=== PATIENT | female | born 1995 | race Caucasian/White ===

== ENCOUNTER → 2017-11-18 | Outpatient (CLI) | payer BC ==
--- NOTE | 2017-11-18 17:02 | XR ---
EXAMINATION TYPE: XR ankle complete LT DATE OF EXAM: 11/18/2017 COMPARISON: NONE HISTORY: Pain and swelling TECHNIQUE: 3 views FINDINGS: There is soft tissue swelling over the lateral malleolus. I see no fracture nor dislocation . Joint spaces are normal. IMPRESSION: Lateral soft tissue swelling. No fracture.
== END | disposition home or self-care (01) ==
LOC: RADXRYALE 16:37
PROVIDERS: ATTEND Internal Medicine
DX: M79.89 Other specified soft tissue disorders (principal)

== ENCOUNTER → 2018-06-04 | Outpatient (CLI) | payer BC ==
--- NOTE | 2018-06-04 07:42 | US ---
EXAMINATION TYPE: US abdomen complete DATE OF EXAM: 06/04/2018 COMPARISON: NONE CLINICAL HISTORY: R10.11 R upper quad pain. EXAM MEASUREMENTS: Liver Length: 14.1 cm Gallbladder Wall: 0.2 cm CBD: 0.2 cm Spleen: 10.3 cm Right Kidney: 10.1 x 3.9 x 5.0 cm Left Kidney: 10.3 x 4.7 x 4.6 cm Pancreas: wnl Liver: wnl Gallbladder: wnl Evidence for sonographic Levin's sign: no CBD: wnl Spleen: wnl Right Kidney: No hydronephrosis or masses seen Left Kidney: No hydronephrosis or masses seen Upper IVC: wnl Abd Aorta: wnl The liver is homogenous. The intrahepatic portion of the IVC and proximal abdominal aorta are within normal limits. There is no evidence of cholelithiasis. Common bile duct is unremarkable. The visu alized portions of the pancreas are homogenous. The spleen is unremarkable. Kidneys are symmetric a nd free of hydronephrosis. No renal lesions are seen. IMPRESSION: No sonographic evidence of cholelithiasis nor acute cholecystitis.
== END | disposition home or self-care (01) ==
LOC: RADUSWWP 07:03
PROVIDERS: ATTEND Internal Medicine
DX: R10.11 Right upper quadrant pain (principal)
CPT/HCPCS: 76700

== ENCOUNTER → 2022-12-12 | Outpatient (CLI) | payer OTHER ==
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
== END | disposition home or self-care (01) ==
LOC: RADMRIMAIN 18:57
PROVIDERS: ATTEND Orthopaedic Surgery
DX: M54.2 Cervicalgia (principal); R51.9 Headache, unspecified
CPT/HCPCS: 72141

== ENCOUNTER → 2022-12-29 | Outpatient (CLI) | payer OTHER ==
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
== END | disposition home or self-care (01) ==
LOC: RADUSWWP 08:23
PROVIDERS: ATTEND Internal Medicine
DX: S70.11XA Contusion of right thigh, initial encounter (principal); R22.41 Localized swelling, mass and lump, right lower limb; V49.9XXA Car occupant (driver) (passenger) injured in unspecified traffic accident, initial encounter

== ENCOUNTER → 2023-01-29 | Outpatient (CLI) | payer BC ==
--- NOTE | 2023-01-29 11:04 | XR ---
EXAMINATION TYPE: XR thoracic spine 2V DATE OF EXAM: 01/29/2023 9:41 AM CLINICAL INDICATION:Female, 27 years old with history of M54.14; COMPARISON: None TECHNIQUE: XR thoracic spine 2V views of the thoracic spine in Frontal and lateral projections. FINDINGS: No evidence of acute fracture. There is no evidence of disk space narrowing or loss of vertebral bod y height. There is normal alignment of the thoracic vertebral bodies. IMPRESSION: No acute osseous pathology.
== END | disposition home or self-care (01) ==
LOC: RADXRMAIN 09:24
PROVIDERS: ATTEND Physician Assistant Medical
DX: M54.14 Radiculopathy, thoracic region (principal)
CPT/HCPCS: 72070

== ENCOUNTER → 2023-01-29 | Outpatient (CLI) | payer OTHER ==
[2023-01-29 09:37] VITALS: BP 138/78; PULSE 73; RESP 15; TEMP 97.3
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
== END ==
LOC: PNWHC3 08:53
PROVIDERS: ATTEND Specialist
DX: M47.24 Other spondylosis with radiculopathy, thoracic region (principal)
CPT/HCPCS: 99211

== ENCOUNTER → 2023-02-11 | Outpatient (CLI) | payer OTHER ==
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
== END | disposition home or self-care (01) ==
LOC: RADMRIMAIN 06:16
PROVIDERS: ATTEND Specialist
DX: M54.14 Radiculopathy, thoracic region (principal)
CPT/HCPCS: 72146

== ENCOUNTER → 2023-02-25 | Outpatient (CLI) | payer BC ==
[2023-02-25 13:26] VITALS: BP 135/87; PULSE 94; RESP 16
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
== END ==
LOC: PNWHC3 12:52
PROVIDERS: ATTEND Specialist
DX: M54.12 Radiculopathy, cervical region (principal); M54.14 Radiculopathy, thoracic region
CPT/HCPCS: 99211

== ENCOUNTER 2023-03-12 11:16 | Day surgery (SDC) | payer OTHER, BC ==
[2023-03-06 15:46] VITALS: BMI 25.0
[2023-03-12 11:45] VITALS: TEMP 98.8
[2023-03-12] MEDS ORDERED: IOPAMIDOL M200 10 ML VIAL ONE (12:20)
[2023-03-12] MEDS ORDERED: methylPREDNISolone ACETATE 80 MG/ML 1 ML VIAL ONE (12:20)
--- NOTE | 2023-03-12 12:34 | P.PCN ---
Date of Procedure: 03/12/23 Procedure(s) Performed: PREOPERATIVE DIAGNOSIS: 1-thoracic radiculopathy POSTOPERATIVE DIAGNOSIS: 1-thoracic radiculopathy PROCEDURE 1. Thoracic epidural steroid injection under fluoroscopic guidance at theT3-4 level. (Fluoroscopy imaging was available in radiology department) 2. Thoracic epidurogram. ANESTHESIA: Lidocaine 1% 3 and then only. EBL: Minimal PROCEDURE INDICATION: The patient with upper back pain and radiculitis symptoms unresponsive to conservative treatment. Fluoroscopy was used to optimize visualization of the needle placement and to maximize safety. PROCEDURE DESCRIPTION / TECHNIQUE: The patient was seen and identified in the preoperative area. Risks, benefits, complications including but not limited to infections ,bleeding ,allergic reaction to the medications ,nerve damage and not complete pain releife , and alternatives were discussed with the patient. The patient agreed to proceed with the procedure and signed the consent, and vital signs were stable. Patient was taken to the OR and time out was completed. The patient was placed in the prone position on procedure table . The lumbosacral area was prepped and draped in the usual sterile fashion.ere closely monitored during the procedure. Vital signs was monitered during the entire procedure. Using anterior-posterior fluoroscopy, the T3-4 interlaminar space was identified and the skin over this site was marked and then infiltrated with 1% lidocaine subcutaneously. Subsequently, a 20-gauge Tuohy epidural needle was inserted and advanced toward the epidural space using the ``Loss of resistance technique and guided by AP and lateral fluoroscopy. The correct needle position in the epidural space was verified with the injection of 2 mL of the water soluble contrast dye Isovue 200 contrast and observing an excellent epidurogram with the epidural spread of the dye, after negative aspiration for blood and CSF and in the absence of paresthesias. Again after negative aspiration, a 6 ml mixture containing 80 mg of Depo-medrol ( Preservetive Free ), and 2 ml of preservative free Normal Saline, and 2 ml of preservative free lidocaine 1% solution was injected and a washout of epidurogram was seen. Needle was withdrawn intact, skin was cleansed, and bandages were applied. COMPLICATIONS: None DISPOSITION / PLANS: The patient was placed in a supine position and transferred to the recovery area in a stable condition for observation. There was no evidence of lower extremity motor or sensory deficit after the procedure. Patient was discharged from the recovery room after meeting discharge criteria. Home discharge instructions were given to the patient by the staff. The patient was reexamined prior to discharge. The patient will schedule a follow up in the clinic in 2-4 weeks.
[2023-03-12] MEDS ORDERED: diphenhydrAMINE 25 MG CAP PO STA (12:40)
--- NOTE | 2023-03-12 12:45 | FL ---
EXAMINATION TYPE: FL guided pain mgmt statistic Intraoperative/procedural fluoroscopic services were provided. Total fluoroscopy time is 5.1 seconds with a total of 1 submitted images to PACS. Please se e the operative/procedural note for further details. DAP: [id number] mGym2
[2023-03-12] MEDS ORDERED: diphenhydrAMINE 25 MG CAP PO ONE (12:51)
[2023-03-12] MEDS ORDERED: LACTATED RINGERS 1,000 ML IV SCH (12:52)
[2023-03-12 13:26] VITALS: BP 133/85; PULSE 99; RESP 16
== END 2023-03-12 13:20 | disposition home or self-care (01) ==
LOC: ORPAIN 11:16
PROVIDERS: ATTEND Specialist
DX: M54.14 Radiculopathy, thoracic region (principal); Z88.6 Allergy status to analgesic agent
CPT/HCPCS: 81025; 62321; J1040; Q9966

== ENCOUNTER → 2023-04-06 | Outpatient (CLI) | payer OTHER, BC ==
[2023-04-06 09:10] VITALS: BP 135/85; PULSE 104; RESP 16; TEMP 97.6
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
== END ==
LOC: PNWHC3 08:41
PROVIDERS: ATTEND Specialist
DX: M54.14 Radiculopathy, thoracic region (principal); M54.12 Radiculopathy, cervical region; Z88.6 Allergy status to analgesic agent; Z88.8 Allergy status to other drugs, medicaments and biological substances
CPT/HCPCS: 99211

== ENCOUNTER 2023-04-16 08:46 | Day surgery (SDC) | payer OTHER, BC ==
[2023-04-16 09:59] VITALS: TEMP 99.4
[2023-04-16] MEDS ORDERED: ROPIVACAINE 5MG/ML 20ML VIAL ONE (10:57)
[2023-04-16] MEDS ORDERED: methylPREDNISolone ACETATE 80 MG/ML 1 ML VIAL ONE (10:57)
--- NOTE | 2023-04-16 11:21 | P.PCN ---
Description of Procedure: PREOPERATIVE DIAGNOSIS: 1-Thoracic degenerative Disc Diseases 2-thoracic spondylosis with Facet arthropathy without myelopathy. 3-thoracic spinal stenosis POSTOPERATIVE DIAGNOSIS: 1-thoracic degenerative disc disease. 2-thoracic spondylosis with facet arthropathy without myelopathy. 3-thoracic spinal stenosis. PROCEDURE Injection of radio contrast material into T 6 7 interspace, interpretation of epidurogram, injection of steroid at T6-7 epidural space under fluoroscopic guidance. ANESTHESIA: Lidocaine 1% subcutaneously. In OR continuous pulse ox, EKG, blood pressure and verbal communication was maintained with the patient. EBL: Minimal PROCEDURE INDICATION: Before the procedure were discussed with the patient detailed procedure, alternatives, complications including infection, bleeding, nerve damage, paralysis all of which could be permanent. Patient understands and all questions were answered. PROCEDURE DESCRIPTION : After getting consent, patient in OR in prone position. Back was prepped with chlorhexidine and draped in sterile fashion. After injecting 10 mL of 1% lidocaine subcutaneously, a 20-gauge Tuohy needle was introduced at T6-7 interspace with loss of resistance technique using a syringe filled with air. Negative CSF, negative blood, negative paresthesia. Needle position was c onfirmed with AP and lateral view of the fluoroscope. No contrast used secondary to patient's significant allergy. After repeat negative aspiration 5 mL solution was injected intermittently which consists of 4 mL of preservative- free normal saline mixed with 1 mL of 80 mg Depo-Medrol. Needle was withdrawn intact. Skin was cleansed and Band-Aids was applied. DISPOSITION / PLANS: The patient tolerated the procedure well. No complication. The patient was placed in a supine position and transferred to the recovery area in a stable condition for observation. There was no evidence of lower extremity motor or sensory deficit after the procedure. Patient was discharged from the recovery room after meeting discharge criteria. Home discharge instructions were given to the patient by the staff. The patient was reexamined prior to discharge. The patient will schedule a follow up in the clinic in 2-4 weeks.
--- NOTE | 2023-04-16 11:22 | FL ---
Fluoroscopy INDICATION: Pain FINDINGS: Fluoroscopy time: 20 seconds. Total dose area product (DAP) in uGy*m?, mGy*cm? (or similar): 0.73120 Images obtained: 3. IMPRESSION: 1. Documentation of fluoroscopy.
[2023-04-16 11:39] VITALS: BP 124/84; PULSE 82; RESP 20
== END 2023-04-16 11:43 | disposition home or self-care (01) ==
LOC: ORPAIN 08:46
PROVIDERS: ATTEND Pain Medicine Interventional Pain Medicine
DX: M47.814 Spondylosis without myelopathy or radiculopathy, thoracic region (principal); M48.04 Spinal stenosis, thoracic region; M51.34 Other intervertebral disc degeneration, thoracic region; Z88.8 Allergy status to other drugs, medicaments and biological substances
CPT/HCPCS: 81025; 62320; J1040; J2795; 62321

== ENCOUNTER → 2023-05-04 | Outpatient (CLI) | payer OTHER, BC ==
[2023-05-04 10:35] VITALS: BP 132/88; PULSE 86; RESP 16; TEMP 98.5
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
== END ==
LOC: PNWHC3 08:56
PROVIDERS: ATTEND Specialist
DX: M54.14 Radiculopathy, thoracic region (principal); M54.12 Radiculopathy, cervical region; Z88.6 Allergy status to analgesic agent; Z88.8 Allergy status to other drugs, medicaments and biological substances
CPT/HCPCS: 99211

== ENCOUNTER 2023-05-28 09:31 | Day surgery (SDC) | payer OTHER, BC ==
[2023-05-26 11:49] VITALS: BMI 26.6
[~2023-05-28 09:31] MED LIST: LACTATED RINGERS 1,000 ML IV SCH
[2023-05-28 10:09] VITALS: TEMP 97.6
[2023-05-28] MEDS ORDERED: methylPREDNISolone ACETATE 80 MG/ML 1 ML VIAL ONE ×2 (10:32)
--- NOTE | 2023-05-28 10:41 | P.PCN ---
Date of Procedure: 05/28/23 Procedure(s) Performed: PREOPERATIVE DIAGNOSIS: 1-thoracic radiculopathy 3-thoracic degenerative disc disease POSTOPERATIVE DIAGNOSIS: 1-thoracic radiculopathy 2-thoracic degenerative disc disease PROCEDURE 1. Thoracic epidural steroid injection under fluoroscopic guidance at theT5-6 level. (Fluoroscopy imaging was available in radiology department). ANESTHESIA: Lidocaine 1% 3 and then only. EBL: Minimal PROCEDURE INDICATION: The patient with upper back pain and radiculitis symptoms unresponsive to conservative treatment. Fluoroscopy was used to optimize visualization of the needle placement and to maximize safety. PROCEDURE DESCRIPTION / TECHNIQUE: The patient was seen and identified in the preoperative area. Risks, benefits, complications including but not limited to infections ,bleeding ,allergic reaction to the medications ,nerve damage and not complete pain releife , and alternatives were discussed with the patient. The patient agreed to proceed with the procedure and signed the consent, and vital signs were stable. Patient was taken to the OR and time out was completed. The patient was placed in the prone position on procedure table . The lumbosacral area was prepped and draped in the usual sterile fashion.ere closely monitored during the procedure. Vital signs was monitered during the entire procedure. Using anterior-posterior fluoroscopy, the T5-6 interlaminar space was identified and the skin over this site was marked and then infiltrated with 1% lidocaine subcutaneously. Subsequently, a 20-gauge Tuohy epidural needle was inserted and advanced toward the epidural space using the ``Loss of resistance technique and guided by AP and lateral fluoroscopy, after negative aspiration for blood and CSF and in the absence of paresthesias. Again after negative aspiration, a 6 ml mixture containing 80 mg of Depo-medrol ( Preservetive Free ), and 2 ml of preservative free Normal Saline, and 2 ml of preservative free lidocaine 1% solution was injected and a washout of epidurogram was seen. Needle was withdrawn intact, skin was cleansed, and bandages were applied. COMPLICATIONS: None DISPOSITION / PLANS: The patient was placed in a supine position and transferred to the recovery area in a stable condition for observation. There was no evidence of lower extremity motor or sensory deficit after the procedure. Patient was discharged from the recovery room after meeting discharge criteria. Home discharge instructions were given to the patient by the staff. The patient was reexamined prior to discharge. The patient will schedule a follow up in the clinic in 2-4 weeks.
[2023-05-28 10:52] VITALS: BP 120/82; PULSE 78; RESP 18
--- NOTE | 2023-05-29 08:26 | FL ---
EXAMINATION TYPE: FL guided pain mgmt statistic DATE OF EXAM: 05/28/2023 HISTORY: Fluoroscopy time Total dose area product (DAP) in uGy*m?, mGy*cm? (or similar): 0.90763 IMPRESSION: 1. Fluoroscopy time.
== END 2023-05-28 11:03 | disposition home or self-care (01) ==
LOC: ORPAIN 09:31
PROVIDERS: ATTEND Specialist
DX: M51.14 Intervertebral disc disorders with radiculopathy, thoracic region (principal); Z88.8 Allergy status to other drugs, medicaments and biological substances
CPT/HCPCS: 81025; 62321; J1010

== ENCOUNTER → 2023-06-18 | Outpatient (CLI) | payer BC, OTHER ==
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
[2023-06-18 10:52] VITALS: BP 119/80; PULSE 93; RESP 16
== END ==
LOC: PNWHC3 09:13
DX: M79.18 Myalgia, other site (principal); G95.29 Other cord compression; G89.18 Other acute postprocedural pain; G89.29 Other chronic pain; Z71.82 Exercise counseling; Z88.8 Allergy status to other drugs, medicaments and biological substances; Z91.048 Other nonmedicinal substance allergy status; Z88.6 Allergy status to analgesic agent
CPT/HCPCS: 99211

== ENCOUNTER → 2023-09-23 | Outpatient (CLI) | payer BC, OTHER | LOC: PNWHC3 07:44 | DX: M54.14 Radiculopathy, thoracic region | CPT/HCPCS: 99211 ==

== ENCOUNTER → 2023-10-15 | Day surgery (SDC) | payer OTHER ==
[~2023-10-15] MED LIST changes: +ROPIVACAINE 5MG/ML 20ML VIAL ONE; +methylPREDNISolone ACETATE 40 MG/ML 1 ML VIAL ONE
[2023-10-15 09:32] VITALS: TEMP 97.9
--- NOTE | 2023-10-15 10:20 | P.PCN ---
Date of Procedure: 10/15/23 Procedure(s) Performed: Procedure= trigger point injections Thoracic paraspinal muscles bilaterally , 3 on the right side from T5-T7 to S1, and 2 on the left side from T5-T7 Preoperative diagnosis= 1-myofascial pain syndrome Thoracic paraspinal muscles 2-Thoracic degenerative disc disease Postoperative diagnosis=Same as preop Diagnosis . Complication = none Condition= stable Anesthesia= none Indication for the procedure= patient complaining of mid back pain , examination was positive for multiple trigger point in the Thoracic paraspinal muscles bilaterally and patient diagnosed with myofascial pain syndrome and is here to have trigger point injections Description of the procedure= procedure risk and benefits discussed with the patient, including but not limited, risk of infection and bleeding, and ALLERGIC reaction to the medication and not complete pain relief and patient agreed with the preceding patient taken to the operating room, placed in sitting position or standard monitors applied to the patient then back prepped with chlorhexidine 3 times , then under sterile technique each of the trigger point that was marked in the preop holding area 3 on the right side Thoracic paraspinal muscles and 2 on the left side thoracic paraspinal muscles each one of them injected with the 2 mL of the mixture of ropivacaine 0.5% 10 ML mixed with 40 mg of Depo-Medrol and 2 mL of the mixture injected at each trigger point after negative aspiration, using 25-gauge needle, injection done after negative aspiration under was no paresthesia during the injection patient tolerated the procedure well without any complications and he will follow up in the pain clinic in a few weeks
[2023-10-15 10:21] VITALS: RESP 16
[2023-10-15 10:34] VITALS: BP 129/79; PULSE 84
== END ==
LOC: ORPAIN 09:05
PROVIDERS: ATTEND Specialist
DX: M79.18 Myalgia, other site (principal); M54.14 Radiculopathy, thoracic region
CPT/HCPCS: 20553; 81025

== ENCOUNTER → 2023-11-02 | Outpatient (CLI) | payer OTHER ==
[2023-11-02 08:23] VITALS: BP 143/79; PULSE 115; RESP 16; TEMP 97.3
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
== END ==
LOC: PNWHC3 07:47
PROVIDERS: ATTEND Specialist
DX: M54.14 Radiculopathy, thoracic region
CPT/HCPCS: 99211